=== PATIENT | male | born 1985 | race African-American/Black ===

== ENCOUNTER 2016-06-17 16:23 | Emergency (ER) | payer MEDICAID, OTHER ==
[~2016-06-17] VITALS: Ht 175.3 cm; Wt 70.0 kg
[~2016-06-17 16:23] MED LIST: IBUP800T25 PO
[2016-06-17 16:30] VITALS: Ht 175.3 cm; Wt 70.0 kg
[2016-06-17] MEDS ORDERED: IBUPROFEN 600 MG TAB PO ONE (17:00)
--- NOTE | 2016-06-17 17:24 | RADRPT ---
PROCEDURE: XR Left foot. CLINICAL INDICATION: Left foot pain, trauma TECHNIQUE: Three views of the left foot were obtained. COMPARISON: No prior studies are available for comparison. FINDINGS: Questionable cortical irregularity at the head of the first proximal phalanx is seen, equivocal for fracture. Alignment is normal. Joint spaces are preserved. There is mild soft tissue swelling of the first digit. IMPRESSION: 1. Questionable cortical irregularity at the head of the first proximal phalanx is equivocal for fra cture. If clinically indicated CT may offer additional detail. 2. Mild soft tissue swelling of the first digit. RPTAT: UU .Joey Norwood MD, MD Date Time Electronically viewed and signed by .Joey Norwood MD, on 06/17/2016 17:24 .K/
[2016-06-17] MEDS ORDERED: HYDR-906 PO (17:35)
[2016-06-17] MEDS ORDERED: IBUP-1542 PO (17:35)
--- NOTE | 2016-06-17 17:40 | ERD ---
ER Documentation Chief Complaint Date/Time DATE: 06/17/16 TIME: 17:39 Chief Complaint pt bib self with c/o left great toe pain HPI Patient is a 30-year-old male who was running track yesterday and he accidentally stubbed his left big toe against a pole vault or equipment. Denies pain that is worse with ambulating and movement. Denies any numbness or tingling. Denies any fall or head injury. Has not taken any for pain. ROS All systems reviewed and are negative except as per history of present illness. Medications Home Meds Active Scripts Hydrocodone/Acetaminophen ([place] 5-325 Tablet) 1 Each Tablet, 1 TAB PO Q6H Y for PAIN, #20 TAB Prov:JUAN CHAWLA PA-C 06/17/16 Ibuprofen* (Motrin*) 600 Mg Tab, 600 MG PO Q6H Y for PAIN AND OR ELEVATED TEMP, #30 TAB Prov:JUAN CHAWLA PA-C 06/17/16 Ibuprofen* (Motrin*) 800 Mg Tab, 800 MG PO Q6, #20 TAB Prov:PRITI MARTINS MD 11/17/15 Allergies Allergies: Coded Allergies: vancomycin (Verified Allergy, Severe, 07/14/13) Uncoded Allergies: PENICILLIN (Allergy, 07/14/13) PMhx/Soc Medical and Surgical Hx: pt denies Medical Hx, pt denies Surgical Hx Hx Alcohol Use: No Hx Substance Use: No Hx Tobacco Use: No Smoking Status: Never smoker FmHx Family History: No diabetes Physical Exam Vitals Vital Signs Date Time Temp Pulse Resp B/P Pulse Ox O2 Delivery O2 Flow Rate FiO2 06/17/16 16:30 97.3 78 18 132/70 98 Physical Exam General: well developed, well nourished, alert, nontoxic, no distress Head: normocephalic, atraumatic Eyes: PERRL, normal conjunctiva Respiratory: Clear to auscaultation bilaterally, speaks in full sentences, no use of accesory muscles or labored breathing, no rales, ronchi, or wheezing Cardiovascular: RRR, No murmurs Extremities: Left foot: Pedal pulse 2+ capillary refill less than 2 seconds, no bony abnormalities, tenderness to palpation over the distal phalanx of the great toe, Results 24 hrs Current Medications Medications (Trade) Dose Ordered Sig/Alex Route PRN Reason Start Time Stop Time Status Last Admin Dose Admin Ibuprofen (Motrin) 600 mg ONCE ONCE PO 06/17/16 17:00 06/17/16 17:01 DC 06/17/16 17:21 Procedures/MDM 30-year-old male presents to the toe trauma. He is neurovascularly intact and ambulatory. X-ray shows probable fracture. Reviewed x-ray with Dr. Stallings we agreed megan tape is appropriate and outpatient management with or so and pain medication. Patient was also given copy of x-rays and CD with images. Recommended this patient follow up with her primary care doctor within 48 hours or return to the emergency room for any worsening of symptoms. However this time I do believe there is suitable for outpatient management. I answered all their questions and they agreed with the plan and were discharged home. Departure Diagnosis: Primary Impression: Toe fracture Condition: Stable Patient Instructions: Finger and Toe Fractures (Broken Finger or Toe) Referrals: [facility] 7 a.m.- 11 p.m. Every Day of the Week NO APPOINTMENT OR AUTHORIZATION NEEDED [facility] Hours: Mon-Fri 9:00 AM - 5:00 PM Additional Instructions: Call your primary care doctor TOMORROW for an appointment during the next 1-2 days.See the doctor sooner or return here if your condition worsens before your appointment time. JUAN CHAWLA PA-C Jun 17, 2016 17:40
== END 2016-06-17 17:50 | disposition home or self-care (01) ==
LOC: FTE 16:23
DX: S92.402A Displaced unspecified fracture of left great toe, initial encounter for closed fracture (principal); W22.8XXA Striking against or struck by other objects, initial encounter; Y92.9 Unspecified place or not applicable
CPT/HCPCS: 73630; Z7502; Z7610

== ENCOUNTER 2016-09-25 16:21 | Emergency (ER) | payer SELFPAY ==
[~2016-09-25] VITALS: Ht 180.3 cm; Wt 81.5 kg
[~2016-09-25 16:21] MED LIST changes: +HYDR-906 PO; +IBUP-1542 PO
[2016-09-25 16:38] VITALS: Ht 180.3 cm; Wt 81.5 kg
[2016-09-25] MEDS ORDERED: KETOROLAC 30 MG INJ IM STA (18:54)
[2016-09-25] MEDS ORDERED: NAPR-260 PO (19:09)
[2016-09-25] MEDS ORDERED: ORPH100T PO (19:09)
--- NOTE | 2016-09-25 19:13 | ERD ---
ER Documentation Chief Complaint Date/Time DATE: 09/25/16 TIME: 19:10 Chief Complaint LOWER BACK PAIN STARTED THIS AM HPI Patient is a 30 year old male no past medical history who presents to the ED with low back pain. He states that he got out of bed suddenly this morning and developed pain to his low back. He states that he has had pain like this in the past and is usually from certain work out or getting out of bed. He denies radiation of pain. He states that the pain is located in his low back. Mostly on the left side. Denies bowel or bladder incontinence. Denies fever chills. Denies chest pain, cough, shortness of breath or difficulty breathing. Denies headache or dizziness. Denies leg pain. He states he is able to ambulate he has not taken any medication and is only used an icy hot cream which has helped with his symptoms. ROS All systems reviewed and are negative except as per history of present illness. Medications Home Meds Active Scripts Orphenadrine Citrate (Norflex) 100 Mg Tablet.sa, 100 MG PO BID for 10 Days, TAB.SA Prov:JUSTIN HOLDER PA-C 09/25/16 Naproxen* (Naprosyn*) 500 Mg Tablet, 500 MG PO BID Y for PAIN AND/OR INFLAMMATION, #30 TAB Prov:JUSTIN HOLDER PA-C 09/25/16 Hydrocodone/Acetaminophen ([place] 5-325 Tablet) 1 Each Tablet, 1 TAB PO Q6H Y for PAIN, #20 TAB Prov:JUAN CHAWLA PA-C 06/17/16 Ibuprofen* (Motrin*) 600 Mg Tab, 600 MG PO Q6H Y for PAIN AND OR ELEVATED TEMP, #30 TAB Prov:JUAN CHAWLA PA-C 06/17/16 Ibuprofen* (Motrin*) 800 Mg Tab, 800 MG PO Q6, #20 TAB Prov:PRITI MARTINS MD 11/17/15 Allergies Allergies: Coded Allergies: vancomycin (Verified Allergy, Severe, 09/25/16) Uncoded Allergies: PENICILLIN (Allergy, Unknown, 09/25/16) PMhx/Soc Medical and Surgical Hx: pt denies Medical Hx, pt denies Surgical Hx History of Surgery: No Anesthesia Reaction: No Hx Neurological Disorder: No Hx Respiratory Disorders: No Hx Cardiac Disorders: No Hx Psychiatric Problems: No Hx Miscellaneous Medical Probl: No Hx Alcohol Use: No Hx Substance Use: No Hx Tobacco Use: No FmHx Family History: No coronary disease, No diabetes, No other Physical Exam Vitals Vital Signs Date Time Temp Pulse Resp B/P Pulse Ox O2 Delivery O2 Flow Rate FiO2 09/25/16 16:38 98.4 96 18 138/80 99 Physical Exam GENERAL: Well-developed, well-nourished male. Appears in no acute distress. HEAD: Normocephalic, atraumatic. EYES: Pupils are equally reactive bilaterally. EOMs grossly intact. No conjunctival erythema. ENT: Moist mucous membranes. No uvula deviation. No kissing tonsils. No exudates. NECK: Supple. No lymphadenopathy or thyromegaly. No meningismus. negative kernig. negative brudinski. LUNG: Clear to auscultation bilaterally. No rhonchi, wheezing, rales or coarse breath sounds. HEART: Regular rate and rhythm. No murmurs, rubs or gallops. BACK: No midline tenderness. No spinal or paraspinal tenderness. No step-offs or deformities. No erythema, warmth. No open wounds or lacerations. Range of motion intact. Patient is able to touch toes without pain. Extremities: Equal pulses bilaterally. No peripheral clubbing, cyanosis or edema. No unilateral leg swelling. NEUROLOGIC: Alert and oriented. Moving all four extremities. 5/5 strength in all extremities. Normal speech. Steady gait. SKIN: Normal color. Warm and dry. No rashes or lesions. Capillary refill < 2 seconds Results 24 hrs Current Medications Medications (Trade) Dose Ordered Sig/Alex Route PRN Reason Start Time Stop Time Status Last Admin Dose Admin Ketorolac Tromethamine (Toradol) 30 mg ONCE STAT IM 09/25/16 18:54 09/25/16 18:55 DC 09/25/16 19:06 Procedures/MDM ER COURSE: I kept the patient and/or family informed of laboratory and diagnostic imaging results throughout the emergency room course. MEDICATIONS Toradol 30 mg IM. Tolerated well with no adverse reaction. Seen improvement in symptoms MEDICAL DECISION MAKING: This is a 30-year-old male who presents with low back pain 1 day. Vital signs were reviewed. Patient is afebrile. Patient is not hypoxic. Patient is not toxic or ill-appearing. Patient likely has muscle strain versus sprain. I do not think a x-ray of his back is necessary at this time as patient did not have spinal or paraspinal tenderness. Low suspicion for cauda equine syndrome, spinal epidural hematoma, spinal epidural abscess, osteomyelitis, fracture, aortic dissection, AAA, pyelonephritis, nephrolithiasis, septic stone, obstructed stone. DISCHARGE: At this time, patient is stable for discharge and outpatient management with no new complaints during the ER course. Patient was sent home with Norflex and Naprosyn and to follow-up with his primary care in 1 week. A note for work was also given.. Patient will be discharged home with instructions to recheck for new or worsening symptoms such as fever, nausea, weakness, LOC and to follow up with primary care in the next 1-2 days. Patient was advised to return to the ER for any new or worsening symptoms. Plan was discussed and patient and/or family understands and agrees. Home instructions were given. Departure Diagnosis: Primary Impression: Back pain Back pain location: low back pain Chronicity: acute Back pain laterality: unspecified Sciatica presence: unspecified whether sciatica present Qualified Code: M54.5 - Acute low back pain, unspecified back pain laterality, with sciatica presence unspecified Condition: Stable Patient Instructions: Back Pain (Acute Or Chronic) Additional Instructions: Call your primary care doctor TOMORROW for an appointment during the next 1-2 days.See the doctor sooner or return here if your condition worsens before your appointment time. JUSTIN HOLDER PA-C September 25, 2016 19:13
== END 2016-09-25 19:31 | disposition home or self-care (01) ==
LOC: FTE 16:21
DX: M54.5 Low back pain (principal)
CPT/HCPCS: 96372; 99284; J1885

== ENCOUNTER 2016-12-10 10:43 | Emergency (ER) | payer SELFPAY ==
[~2016-12-10] VITALS: Ht 182.9 cm; Wt 80.0 kg
[~2016-12-10 10:43] MED LIST changes: +NAPR-260 PO; +ORPH100T PO
[2016-12-10 10:47] VITALS: Ht 182.9 cm; Wt 80.0 kg
[2016-12-10] MEDS ORDERED: ALBU8.5H3 INH (11:09)
--- NOTE | 2016-12-11 15:10 | ERD ---
ER Documentation Chief Complaint Date/Time DATE: 12/11/16 TIME: 15:06 Chief Complaint REPORTED SLIGHT WHEEZING TODAY, USING INHALERS HPI This is a 31-year-old male with a known history of asthma that presents to the emergency department stating he would like a medication refill of his inhaler which he ran out of 1 day ago. The patient indicates he has never required intubation in the past. 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 He also states he would like a work note indicating it is difficult for him to be around the substances due to worsening of his asthma. Indicates he has not required admission to the hospital for his asthma in the past. He denies any recent travel. He has had no fever shaking or chills. He denies a productive or nonproductive cough. ROS All systems reviewed and are negative except as per history of present illness. Medications Home Meds Active Scripts Albuterol Sulfate* (Proair HFA*) 8.5 Gm Hfa.aer.ad, 2 PUFF INH Q6H Y for WHEEZING AND SOB, #1 INHALER Prov:AFSHAN VASQUEZ 12/10/16 Orphenadrine Citrate (Norflex) 100 Mg Tablet.sa, 100 MG PO BID for 10 Days, TAB.SA Prov:JUSTIN HOLDER PA-C 09/25/16 Naproxen* (Naprosyn*) 500 Mg Tablet, 500 MG PO BID Y for PAIN AND/OR INFLAMMATION, #30 TAB Prov:JUSTIN HOLDER PA-C 09/25/16 Hydrocodone/Acetaminophen ([place] 5-325 Tablet) 1 Each Tablet, 1 TAB PO Q6H Y for PAIN, #20 TAB Prov:JUAN CHAWLA PA-C 06/17/16 Ibuprofen* (Motrin*) 600 Mg Tab, 600 MG PO Q6H Y for PAIN AND OR ELEVATED TEMP, #30 TAB Prov:JUAN CHAWLA PA-C 06/17/16 Ibuprofen* (Motrin*) 800 Mg Tab, 800 MG PO Q6, #20 TAB Prov:PRITI MARTINS MD 11/17/15 Allergies Allergies: Coded Allergies: vancomycin (Verified Allergy, Severe, 12/10/16) Penicillins (Verified Allergy, Mild, 12/10/16) PMhx/Soc History of Surgery: No Anesthesia Reaction: No Hx Neurological Disorder: No Hx Respiratory Disorders: No (ASTHMA) Hx Cardiac Disorders: No Hx Psychiatric Problems: No Hx Miscellaneous Medical Probl: No Hx Alcohol Use: No Hx Substance Use: No Hx Tobacco Use: No Smoking Status: Never smoker Physical Exam Vitals Vital Signs Date Time Temp Pulse Resp B/P Pulse Ox O2 Delivery O2 Flow Rate FiO2 12/10/16 10:47 98.1 61 18 138/79 99 Physical Exam Constitutional:Well-developed. Well-nourished. HEENT:Normocephalic. Atraumatic.Pupils were equal round reactive to light. Moist mucous membranes.No tonsillar exudates. Respiratory: Not using accessory muscles of respiration.Lungs were clear to auscultation bilaterally. No rhonchi. No rales. No wheezing. Cardiovascular: Regular rate regular rhythm.No murmurs. No rubs were appreciated.S1, S2 normal. Distal pulses are palpable 2+ bilaterally. Muscle skeletal: Full range of motion of both the upper and lower extremities bilaterally.Normal muscle tone.No assymetrical calf tenderness or swelling. Skin: No petechia, no purpura. No lesions on the palms or the soles of the feet. No maculopapular rash. NEURO: Patient was alert, awake, orientated x3.No facial droop. Gait observed and normal with no ataxia.Speech had regular rate and rhythm. No focal neurological deficits. Procedures/MDM This is a very pleasant 31-year-old male that did not have any signs of respiratory distress or wheezing on auscultation. The patient stated he did not feel he needed a nebulizer treatment in the emergency department and just kindly stated he would like a medication refill for his albuterol inhaler given that he does not have a primary care physician. I provided a prescription for him as well as a work note indicating certain restrictions to prevent him from having further asthma attack. The patient was discharged home in fair condition. They were instructed to return to the emergency department at any time if there was any worsening of their condition. The patient stated they would follow up with their PCP in the next 24-48 hours to initiate a suitable medication regimen under the care of their PCP as well as to allow their PCP to monitor any drug reactions. The patient was discharged home with prescriptions after they gave informed consent to the new medication. They were also fully informed by myself on the adverse effects and adverse drug interactions in order to provide adequate safeguards to prevent possible adverse reactions to medications. Departure Diagnosis: Primary Impression: Asthma Condition: Fair Patient Instructions: Asthma, Acute (Adult) Additional Instructions: Please note that patient, Jm Rodriguez, is unable to work around fumes, tar, chemicals, smoke or marinade due to his severe asthma. AFSHAN VASQUEZ Dec 11, 2016 15:10
== END 2016-12-10 11:24 | disposition home or self-care (01) ==
LOC: FTE 10:43 → EDUNIT# 10:43 → FTE 11:24
DX: J45.901 Unspecified asthma with (acute) exacerbation (principal)
CPT/HCPCS: 99283

== ENCOUNTER 2017-01-24 09:52 | Emergency (ER) | payer SELFPAY ==
[~2017-01-24] VITALS: Wt 80.0 kg
[~2017-01-24 09:52] MED LIST changes: +ALBU8.5H3 INH
[2017-01-24] MEDS ORDERED: KETOROLAC 60 MG INJ IM STA (11:31)
--- NOTE | 2017-01-24 11:39 | ERD ---
ER Documentation Chief Complaint Date/Time DATE: 01/24/17 TIME: 11:27 Chief Complaint LEFT FOOT PAIN, NO INJURY HPI 31-year-old male presents emergency department for left foot pain started yesterday. Stated that he had a 5000 m run last Sunday. Warmed up yesterday. Has a left foot pain when he woke up this morning. Denies headache, dizziness, blurred vision, neck pain, shoulder pain, chest pain , back pain, abdominal pain, nausea, vomiting, constipation, diarrhea, urinary symptoms, loss of bowel and bladder control,recent travel, recent exposure to any illness, recent antibiotic use in the last 3 months, fever, chills, direct trauma, falls, numbness or tingling sensation. Allergies to penicillin and vancomycin. Past medical history of asthma. No surgical history. Medication: Takes Motrin at home. 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 Denies smoking, use of alcohol, use of illegal drugs. ROS All systems reviewed and are negative except as per history of present illness. Medications Home Meds Active Scripts Naproxen* (Naprosyn*) 500 Mg Tablet, 500 MG PO BID Y for PAIN AND/OR INFLAMMATION, #30 TAB Prov:SANAM MAR 01/24/17 Albuterol Sulfate* (Proair HFA*) 8.5 Gm Hfa.aer.ad, 2 PUFF INH Q6H Y for WHEEZING AND SOB, #1 INHALER Prov:AFSHAN VASQUEZ 12/10/16 Orphenadrine Citrate (Norflex) 100 Mg Tablet.sa, 100 MG PO BID for 10 Days, TAB.SA Prov:JUSTIN HOLDER PA-C 09/25/16 Naproxen* (Naprosyn*) 500 Mg Tablet, 500 MG PO BID Y for PAIN AND/OR INFLAMMATION, #30 TAB Prov:JUSTIN HOLDER PA-C 09/25/16 Hydrocodone/Acetaminophen ([place] 5-325 Tablet) 1 Each Tablet, 1 TAB PO Q6H Y for PAIN, #20 TAB Prov:JUAN CHAWLA PA-C 06/17/16 Ibuprofen* (Motrin*) 600 Mg Tab, 600 MG PO Q6H Y for PAIN AND OR ELEVATED TEMP, #30 TAB Prov:JUAN CHAWLA PA-C 06/17/16 Ibuprofen* (Motrin*) 800 Mg Tab, 800 MG PO Q6, #20 TAB Prov:PRITI MARTINS MD 11/17/15 Allergies Allergies: Coded Allergies: vancomycin (Verified Allergy, Severe, 12/10/16) Penicillins (Verified Allergy, Mild, 12/10/16) PMhx/Soc History of Surgery: No Anesthesia Reaction: No Hx Neurological Disorder: No Hx Respiratory Disorders: No (ASTHMA) Hx Cardiac Disorders: No Hx Psychiatric Problems: No Hx Miscellaneous Medical Probl: No Hx Alcohol Use: No Hx Substance Use: No Hx Tobacco Use: No Physical Exam Vitals Vital Signs Date Time Temp Pulse Resp B/P Pulse Ox O2 Delivery O2 Flow Rate FiO2 01/24/17 12:41 98.4 62 19 145/86 100 Room Air 01/24/17 09:54 97.6 60 18 160/81 99 Physical Exam Const: [] Head: Atraumatic Eyes: Normal Conjunctiva ENT: Normal External Ears, Nose and Mouth. Neck: Full range of motion..~ No meningismus. Resp: Clear to auscultation bilaterally Cardio: Regular rate and rhythm, no murmurs Abd: Soft, non tender, non distended. Normal bowel sounds Skin: No petechiae or rashes Back: No midline or flank tenderness Ext: No cyanosis, or edema. C-spine/T-spine/L-spine are in midline and is good and full range of motion without tenderness/bulging/swelling/ discoloration. Bilateral upper extremities unremarkable. Bilateral hips are stable and unremarkable. Right lower extremities unremarkable. Left foot has tenderness to palpation to inferior area/plantar area without swelling/ discoloration/deformity. Able to move or has good and full range of motion of the left toes. Left knee is unremarkable. Left ankle is unremarkable. No saddle anesthesia. No neurovascular deficits. Neur: Awake and alert Psych: Normal Mood and Affect Results 24 hrs Current Medications Medications (Trade) Dose Ordered Sig/Alex Route PRN Reason Start Time Stop Time Status Last Admin Dose Admin Ketorolac Tromethamine (Toradol) 60 mg ONCE STAT IM 01/24/17 11:31 01/24/17 11:33 DC 01/24/17 11:38 Procedures/MDM Examination: Please see physical examination. Disease process, medical treatment was explained to the patient and family member. They verbalized understanding and agreed with the diagnostic tests, medical treatment, and follow-up care. Radiology: X-ray of the left foot Impression: Normal images. Treatment: Toradol IM. Re-evaluation: Denies headache, chest pain, shortness of breath, numbness or tingling sensation. No neurovascular deficits prior to and after the application of Duy wrap. Consultation: None. Differential diagnosis: Fracture versus dislocation versus displacement versus contusion versus sprain versus plantar fasciitis Medical decision makin-year-old male presents emergency department for left foot pain started yesterday. Stated that he had a 5000 m run last Sunday. Warmed up yesterday. Has a left foot pain when he woke up this morning. Patient's complaint, patient's history about his complaint, my physical findings , anoxic test results, my reevaluation are consistent my final diagnosis of left foot sprain, left plantar fasciitis. Medications prescribed are the following: Naprosyn. Patient and family member are made aware of the side effects and adverse reactions of the medications prescribed. Instructed on when to seek emergent and medical attention in case allergic/anaphylactic reactions or severe side effects and or adverse reactions to medications. Patient and family member verbalized understanding. Patient instructed Instructed to follow-up with his PCP in 24-48 hours. Instructed to Call 911 for chest pain, shortness of breath. Advised to come back here in ED as soon as possible for severity of symptoms which includes but not limited to: any new symptoms; shortness of breath/difficulty of breathing; cardiovascular changes; severe gastrointestinal symptoms; signs and symptoms of bleeding and or infection; signs of compartment syndrome/neurovascular changes; neurological changes/deficits. Patient and family member verbalized understanding. Upon discharge, patient is alert and oriented x 4, speaks full and clear sentences, denies pain, has no neurological deficits, has no neurovascular deficits, difficulty of breathing. Breathing even and unlabored. Lung sounds are clear to auscultation. Not in distress. Appears comfortable. Ambulatory with steady gait. Appears satisfied with care provided here in ED. Departure Diagnosis: Primary Impression: Foot pain Additional Impression: Plantar fasciitis Condition: Stable Additional Instructions: Instructed to follow-up with his PCP in 24-48 hours. Instructed to Call 911 for chest pain, shortness of breath. Advised to come back here in ED as soon as possible for severity of symptoms which includes but not limited to: any new symptoms; shortness of breath/difficulty of breathing; cardiovascular changes; severe gastrointestinal symptoms; signs and symptoms of bleeding and or infection; signs of compartment syndrome/neurovascular changes; neurological changes/deficits. Patient and family member verbalized understanding. SANAM MAR Jan 24, 2017 11:39
[2017-01-24] MEDS ORDERED: NAPR-260 PO (11:41)
--- NOTE | 2017-01-24 12:17 | RADRPT ---
PROCEDURE: XR Left Foot. CLINICAL INDICATION: Trauma. Left foot pain. TECHNIQUE: Three views. Frontal, lateral, and oblique. COMPARISON: 06/17/2016. FINDINGS: There is no fracture or dislocation. The soft tissues are normal. Articular surfaces are intact. There is no lytic or blastic lesion. There is no radiopaque foreign body. IMPRESSION: 1. Normal images of the left foot. RPTAT: QQ .Thong Huynh MD, MD Date Time Electronically viewed and signed by .Thong Huynh MD, MD on 01/24/2017 12:16 .R/
[2017-01-24 12:41] VITALS: BP 145/86; PULSE 62; RESP 19; TEMP 98.4
== END 2017-01-24 12:42 | disposition home or self-care (01) ==
LOC: FTE 09:52
DX: M79.672 Pain in left foot (principal); M72.2 Plantar fascial fibromatosis; J45.909 Unspecified asthma, uncomplicated
CPT/HCPCS: 73630; 96372; 99284; J1885